=== PATIENT | female | born 1950 | race Caucasian/White ===

== ENCOUNTER 2023-08-22 10:03 | Outpatient (CLI) | payer MEDICARE, BC, SELFPAY ==
--- NOTE | 2023-08-22 10:15 | MR_ITS ---
[facility] [address] [facility] [address] Phone:?[phone] Fax:?[phone] Referring Physician Information: Eduar Helton M.D. [address] [facility] [address] Phone:?[phone] Fax:?[phone] Patient:Justin Benitez D.O.B:?1950 Sex:?Female Phone:?[phone] [facility] MRN:?[id number] Exam Date:?08/22/2023 EXAM: MRI of the RIGHT SHOULDER, without contrast CLINICAL INFORMATION: Female, 73 years old, with right shoulder pain. INDICATION: Evaluate for rotator cuff tear. PRIOR SURGERY: History of shoulder surgery. PLAIN FILMS: Shoulder radiographs dated 08/08/2023. COMPARISONS: Right shoulder MRI dated 07/01/2021. TECHNICAL INFORMATION: Using a 1.5T MR scanner and a localizing surface coil: coronal obliques: PD, T2, STIR sagittal obliques: PD, T2 axials: PD, T2 SEDATION: None CONTRAST: None FINDINGS: Bones: Proximal humerus: Surgical anchors in the greater tuberosity reflect rotator cuff repair and biceps tenodesis. No stress/occult fracture otherwise abnormal marrow signal/pathology. No humeral Hill-Sachs or reverse Hill-Sachs lesion/impaction or contusion. Glenoid: No fracture or marrow edema/pathology. No osseous Bankart lesion. Rotator cuff and muscles/tendons: Supraspinatus & infraspinatus: Status post repair. There is mild/moderate attenuation and irregularity of the supraspinatus greater than infraspinatus tendons, without residual or recurrent full-thickness tendon tear. No muscle atrophy. Teres minor: No tendinopathy, tear or atrophy. Subscapularis: Moderate-marked tendinopathy of the superior distal subscapularis with chronic partial thickness interstitial tearing, but no full-thickness or retracted tear. No muscle atrophy. Deltoid: No strain or atrophy. Coracoacromial arch: Acromion morphology: Status post anterior arthroplasty for subacromial decompression, good result. Acromiohumeral space: The acromiohumeral space is decompressed. Coracohumeral space: The coracohumeral space is within normal limits. Acromioclavicular joint: Joint: Status post partial AC joint resection for subacromial decompression, good result. Ligaments: Coracoclavicular ligaments are intact. Bursae: Subacromial-subdeltoid: Mild subacromial-subdeltoid bursal fluid/bursitis. Subcoracoid: No convincing subcoracoid bursal thickening/bursitis. Biceps tendon: Status post biceps tenodesis at the level of the superior aspect of the bicipital groove. However, the biceps long head tendon appears to be displaced from the tenodesis site by approximately 2.8 cm (axial PD series 3 image 23). Glenohumeral joint: Effusion/cyst: Small glenohumeral joint effusion. Articular cartilage: Humeral head: Mild thinning of the articular cartilage is present throughout the medial aspect of the humeral head, with mild inferomedial marginal osteophytosis. Glenoid: Moderate thinning of the glenoid articular cartilage, with mild anterior greater than posterior marginal osteophytosis. Loose bodies: No discrete intra-articular body within the joint. Labrum:?Intrasubstance degeneration and poorly defined fraying/tearing is present throughout the superior and anterior labrum, but is of doubtful clinical significance. Inferior glenohumeral ligament/axillary pouch:?Mild to moderate thickening of inferior capsuloligamentous structures (coronal PD series 5 images 13-18). Additionally, there is soft tissue thickening throughout the rotator interval (sagittal T2 series 8 images 814). IMPRESSION: 1. Status post supraspinatus & infraspinatus tendon repairs. No residual or recurrent full-thickness tear. 2. Moderate-marked subscapularis tendinopathy with chronic interstitial tearing, without significant interval change compared to the prior study dated 07/01/2021. No full-thickness tear or atrophy. 3. Status post biceps tenodesis at the superior aspect of the bicipital groove. However, the biceps long head tendon appears to be displaced approximately 2.8 cm from the tenodesis site. 4. Mild osteoarthritis of the glenohumeral joint, which has progressed since the prior study. 5. Status post anterior acromioplasty and AC joint resection for subacromial decompression, good result. However, there is mild subacromial-subdeltoid bursal fluid/bursitis. 6. Findings in keeping with adhesive capsulitis. 7. Intrasubstance degeneration and poorly defined fraying/tearing of the superior and anterior labrum, which is of doubtful clinical significance. BC Electronically signed on 08/22/2023 4:16:00 PM by Devon Light M.D.
== END 2023-08-22 10:04 | disposition home or self-care (01) ==
LOC: MRI 10:05
PROVIDERS: PCP Family Medicine; Visit Provider Orthopaedic Surgery Sports Medicine
DX: M25.511 Pain in right shoulder (principal); S46.811A Strain of other muscles, fascia and tendons at shoulder and upper arm level, right arm, initial encounter; M19.011 Primary osteoarthritis, right shoulder; M75.51 Bursitis of right shoulder; M75.01 Adhesive capsulitis of right shoulder; M75.101 Unspecified rotator cuff tear or rupture of right shoulder, not specified as traumatic
CPT/HCPCS: 73221